=== PATIENT | male | born 1945 | race Two or more races ===

== ENCOUNTER 2017-09-18 07:26 | Outpatient (CLI) | payer OTHER ==
[~2017-09-18 07:26] MED LIST: AMLODIPINE BESY10 MG; CASODEX50 MG; METFORMIN HCL500 MG
== END 2017-09-18 07:37 | disposition home or self-care (01) ==
LOC: NUCLEAR 07:26
DX: C61 Malignant neoplasm of prostate (principal)
CPT/HCPCS: 78306; A9503

== ENCOUNTER 2018-09-03 07:13 | Outpatient (CLI) | payer OTHER | END 2018-09-03 07:21 | disposition home or self-care (01) | LOC: NUCLEAR 07:13 | DX: C61 Malignant neoplasm of prostate (principal) | CPT/HCPCS: 78306; A9503 ==

== ENCOUNTER 2019-06-25 08:15 | Outpatient (CLI) | payer OTHER | END 2019-06-25 09:00 | disposition home or self-care (01) | LOC: NUCLEAR 08:15 | DX: C61 Malignant neoplasm of prostate (principal) | CPT/HCPCS: 78306; A9503 ==

== ENCOUNTER 2019-11-02 09:37 | Outpatient (CLI) | payer OTHER | END 2019-11-02 09:56 | disposition home or self-care (01) | LOC: NUCLEAR 09:37 | DX: C61 Malignant neoplasm of prostate (principal) | CPT/HCPCS: 78306; A9503 ==

== ENCOUNTER 2020-05-16 08:15 | Outpatient (CLI) | payer OTHER | END 2020-05-16 11:09 | disposition home or self-care (01) | LOC: NUCLEAR 08:15 | DX: C61 Malignant neoplasm of prostate (principal) | CPT/HCPCS: 78803; A9503 ==